=== PATIENT | female | born 1970 | race Caucasian/White ===

== ENCOUNTER 2019-10-26 11:41 | Emergency (ER) | payer OTHER ==
[~2019-10-26] VITALS: Ht 170.2 cm; Wt 91.2 kg
[~2019-10-26 11:41] MED LIST: CEPHALEXIN 500500 M3 PO; HYDROCODONE-AP1 EAC6 PO; NOHOMEMEDICATIONS
[2019-10-26] MEDS ORDERED: CYMBALTA60 MG PO (12:09)
[2019-10-26] MEDS ORDERED: COZAAR 50 MG TA50 M1 PO (12:09)
[2019-10-26] MEDS ORDERED: METFORMIN HCL500 M3 PO (12:09)
[2019-10-26] MEDS ORDERED: GLYBURIDE 5 MG T5 M1 PO (12:09)
[2019-10-26] MEDS ORDERED: BUPROPION XL300 MG PO (12:09)
[2019-10-26] MEDS ORDERED: CELEBREX 200 M200 MG PO (12:10)
[2019-10-26] MEDS ORDERED: TOPIRAMATE ER50 MG PO (12:10)
[2019-10-26] MEDS ORDERED: MEDROLDOSEPACK PO (13:24)
[2019-10-26 13:36] VITALS: BP 144/88
== END 2019-10-26 13:38 | disposition home or self-care (01) ==
LOC: M.ERS 11:41
DX: M25.571 Pain in right ankle and joints of right foot (principal); M06.9 Rheumatoid arthritis, unspecified; I10 Essential (primary) hypertension; G43.909 Migraine, unspecified, not intractable, without status migrainosus; E11.9 Type 2 diabetes mellitus without complications; Z90.710 Acquired absence of both cervix and uterus

== ENCOUNTER 2020-01-14 11:15 | Emergency (ER) | payer OTHER ==
[~2020-01-14] VITALS: Ht 170.2 cm; Wt 93.0 kg
[~2020-01-14 11:15] MED LIST changes: +BUPROPION XL300 MG PO; +CELEBREX 200 M200 MG PO; +COZAAR 50 MG TA50 M1 PO; +CYMBALTA60 MG PO; +GLYBURIDE 5 MG T5 M1 PO; +MEDROLDOSEPACK PO; +METFORMIN HCL500 M3 PO; +TOPIRAMATE ER50 MG PO
[2020-01-14] MEDS ORDERED: CYMBALTA20 MG PO (11:30)
[2020-01-14] MEDS ORDERED: NORCO 5-325 TA1 EAC1 PO (11:30)
[2020-01-14] MEDS ORDERED: INDOMETHACIN 2525 MG PO (11:31)
[2020-01-14 11:51] LABS: INFLUENZA A ANTIGEN Negative (Negative); INFLUENZA B ANTIGEN Negative (Negative)
[2020-01-14] MEDS ORDERED: TYLENOL WITH CO1 TA1 PO (12:16)
[2020-01-14] MEDS ORDERED: TESSALON PERLE100 MG PO (12:16)
[2020-01-14] MEDS ORDERED: PROAIR HFA8.5 GM INH (12:16)
[2020-01-14] MEDS ORDERED: ZPAK PO (12:16)
[2020-01-14 12:27] VITALS: BP 145/68
== END 2020-01-14 12:28 | disposition home or self-care (01) ==
LOC: M.ERS 11:15
PROVIDERS: Physician Assistant
DX: J20.9 Acute bronchitis, unspecified (principal); I10 Essential (primary) hypertension; E11.9 Type 2 diabetes mellitus without complications; M19.90 Unspecified osteoarthritis, unspecified site; G43.909 Migraine, unspecified, not intractable, without status migrainosus; Z90.710 Acquired absence of both cervix and uterus; Z96.652 Presence of left artificial knee joint; Z98.51 Tubal ligation status; Z85.41 Personal history of malignant neoplasm of cervix uteri